=== PATIENT | female | born 1980 | race Two or more races ===

== ENCOUNTER 2017-10-08 14:33 | Outpatient (CLI) | payer OTHER | END 2017-10-08 14:58 | disposition home or self-care (01) | LOC: SONOGRAMA 14:33 | DX: M19.90 Unspecified osteoarthritis, unspecified site (principal) ==

== ENCOUNTER 2021-03-16 21:38 | Emergency (ER) | payer OTHER ==
[~2021-03-16] VITALS: Ht 157.5 cm; Wt 82.6 kg
[2021-03-16] MEDS ORDERED: PRENATAL + DHA1 EAC1 (21:50)
[2021-03-16] MEDS ORDERED: ADULT LOW DOSE81 M1 (21:51)
== END 2021-03-17 | disposition home or self-care (01) ==
LOC: ER 21:38
DX: R10.2 Pelvic and perineal pain (principal)

== ENCOUNTER 2021-07-31 12:00 | Inpatient (IN) | payer OTHER ==
[~2021-07-31] VITALS: Ht 160 cm; Wt 83.0 kg
[~2021-07-31 12:00] MED LIST: ADULT LOW DOSE81 M1; PRENATAL + DHA1 EAC1
[2021-08-08] MEDS ORDERED: IBUPROFEN400 MG PO (08:09)
[2021-08-08] MEDS ORDERED: PRENATE ADVANCE PO (08:09)
[2021-08-08] MEDS ORDERED: SENOKOT-S TABL1 EACH PO (08:09)
== END 2021-08-08 12:57 | disposition home or self-care (01) | DRG 805 ==
LOC: OB/GYN 08-06 07:13 → LDR 08-06 07:13 → OB/GYN 08-06 08:57
PROVIDERS: ADMIT Specialist; ATTEND Specialist
PROC: 10E0XZZ Delivery of Products of Conception, External Approach (ICD-10-PCS; principal; 2021-08-06)
PROC: 0HQ9XZZ Repair Perineum Skin, External Approach (ICD-10-PCS; 2021-08-06)
PROC: 4A1HXFZ Monitoring of Products of Conception, Cardiac Rhythm, External Approach (ICD-10-PCS; 2021-08-06)
DX: O70.0 First degree perineal laceration during delivery (principal); O98.52 Other viral diseases complicating childbirth; U07.1 COVID-19; Z37.0 Single live birth; Z3A.38 38 weeks gestation of pregnancy